=== PATIENT | female | born 2000 | race Two or more races ===

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

== ENCOUNTER 2019-01-13 10:51 | Outpatient (CLI) | payer OTHER ==
[~2019-01-13 10:51] MED LIST: MAXFE CAPLET1 EACH PO; PRENATAL TABLE1 EAC1 PO
[2019-01-13] MEDS ORDERED: OSEL75CA PO (15:36)
== END 2019-01-13 12:50 | disposition still patient (30) ==
LOC: OBS/DEL 10:51
DX: O26.893 Other specified pregnancy related conditions, third trimester (principal); R50.9 Fever, unspecified; J11.1 Influenza due to unidentified influenza virus with other respiratory manifestations

== ENCOUNTER 2019-01-13 11:36 | Emergency (ER) | payer OTHER ==
[~2019-01-13] VITALS: Ht 152.4 cm; Wt 63.5 kg
[2019-01-13] MEDS ORDERED: OSEL75CA PO (15:36)
== END 2019-01-13 16:12 | disposition home or self-care (01) ==
LOC: ER 11:36
DX: J11.1 Influenza due to unidentified influenza virus with other respiratory manifestations (principal); R50.9 Fever, unspecified

== ENCOUNTER 2019-01-24 06:20 | Inpatient (IN) | payer OTHER ==
[~2019-01-24] VITALS: Ht 152.4 cm; Wt 2.7 kg
[~2019-01-24 06:20] MED LIST changes: +OSEL75CA PO
== END 2019-01-27 17:18 | disposition home or self-care (01) | DRG 788 ==
LOC: OB/GYN 06:20 → LDR 06:20 → OB/GYN 21:42
PROVIDERS: ADMIT Obstetrics & Gynecology
PROC: 10907ZC Drainage of Amniotic Fluid, Therapeutic from Products of Conception, Via Natural or Artificial Opening (ICD-10-PCS; 2019-01-24)
PROC: 3E0P7VZ Introduction of Hormone into Female Reproductive, Via Natural or Artificial Opening (ICD-10-PCS; 2019-01-24)
PROC: 3E033VJ Introduction of Other Hormone into Peripheral Vein, Percutaneous Approach (ICD-10-PCS; 2019-01-24)
PROC: 4A1HXCZ Monitoring of Products of Conception, Cardiac Rate, External Approach (ICD-10-PCS; 2019-01-24)
PROC: 10D00Z1 Extraction of Products of Conception, Low, Open Approach (ICD-10-PCS; principal; 2019-01-24 19:00)
DX: O61.0 Failed medical induction of labor (principal); Z3A.39 39 weeks gestation of pregnancy; Z37.0 Single live birth